=== PATIENT | female | born 1970 | race Caucasian/White ===

== ENCOUNTER 2019-03-01 19:55 | Emergency (ER) | payer OTHER ==
[~2019-03-01] VITALS: Ht 175.2 cm; Wt 81.6 kg
[~2019-03-01 19:55] MED LIST: CIPROFLOXACIN500 MG PO; CLINDAMYCIN HC300 MG PO; FLEXERIL10 MG PO; NAPROSYN500 MG PO; NKHM; PYRIDIUM200 MG PO; ROBAXIN500 MG PO; VICODIN 5/500 505 MG PO; Vicodin 5/500 505 MG PO
[2019-03-01] MEDS ORDERED: ANTIBIOTIC28.4 GM T (20:45)
[2019-03-01] MEDS ORDERED: CEPHALEXIN500 M1 PO (20:45)
== END 2019-03-01 22:00 | disposition home or self-care (01) ==
LOC: ED 19:55
DX: S01.112A Laceration without foreign body of left eyelid and periocular area, initial encounter (principal); F17.200 Nicotine dependence, unspecified, uncomplicated; Z23 Encounter for immunization; Z88.2 Allergy status to sulfonamides; Z79.899 Other long term (current) drug therapy; W18.2XXA Fall in (into) shower or empty bathtub, initial encounter; Y93.E8 Activity, other personal hygiene; Y92.091 Bathroom in other non-institutional residence as the place of occurrence of the external cause; Y99.8 Other external cause status

== ENCOUNTER 2019-03-22 16:03 | Emergency (ER) | payer OTHER ==
[~2019-03-22] VITALS: Ht 175.2 cm; Wt 72.6 kg
[~2019-03-22 16:03] MED LIST changes: +ANTIBIOTIC28.4 GM T; +CEPHALEXIN500 M1 PO
== END 2019-03-22 16:55 | disposition home or self-care (01) ==
LOC: ED 16:03
DX: S01.112D Laceration without foreign body of left eyelid and periocular area, subsequent encounter (principal); Z48.02 Encounter for removal of sutures; Z88.2 Allergy status to sulfonamides; W18.2XXD Fall in (into) shower or empty bathtub, subsequent encounter

== ENCOUNTER → 2021-04-15 | Outpatient (CLI) | payer OTHER | END | disposition home or self-care (01) | LOC: COVID19 15:51 | PROVIDERS: ATTEND Internal Medicine | DX: Z20.822 Contact with and (suspected) exposure to COVID-19 (principal) ==

== ENCOUNTER 2023-10-16 13:17 | Emergency (ER) | payer OTHER ==
[~2023-10-16] VITALS: Ht 175.2 cm; Wt 68.0 kg
[2023-10-16] MEDS ORDERED: Acetaminophen/Oxycodone 5 MG/325 MG TABLET PO ONE (13:40)
[2023-10-16] MEDS ORDERED: PREDNISONE20 M1 PO (13:44)
[2023-10-16] MEDS ORDERED: HYDROCODONE-AC1 EAC1 PO (13:44)
== END 2023-10-16 14:05 | disposition home or self-care (01) ==
LOC: ED 13:17
DX: M10.9 Gout, unspecified (principal); Z88.2 Allergy status to sulfonamides; Z98.890 Other specified postprocedural states